=== PATIENT | female | born 1965 | race Caucasian/White ===

== ENCOUNTER → 2016-11-28 | Outpatient (CLI) | payer MEDICAID | LOC: FIMAGING 13:25 | PROVIDERS: ATTEND Internal Medicine | DX: J40 Bronchitis, not specified as acute or chronic (principal); F90.0 Attention-deficit hyperactivity disorder, predominantly inattentive type; M10.9 Gout, unspecified; E66.9 Obesity, unspecified; Z85.3 Personal history of malignant neoplasm of breast ==

== ENCOUNTER → 2017-01-16 | Outpatient (CLI) | payer MEDICAID | LOC: FIMAGING 10:07 | PROVIDERS: ATTEND Internal Medicine | DX: M25.551 Pain in right hip (principal); M25.552 Pain in left hip; M54.9 Dorsalgia, unspecified ==

== ENCOUNTER → 2017-05-17 | Outpatient (CLI) | payer MEDICAID | LOC: FIMAGING 14:06 | PROVIDERS: ATTEND Internal Medicine | DX: R05 Cough (principal); R91.8 Other nonspecific abnormal finding of lung field; Z85.3 Personal history of malignant neoplasm of breast ==

== ENCOUNTER → 2017-05-21 | Outpatient (CLI) | payer MEDICAID | LOC: BMCIMAGING 07:19 | PROVIDERS: ATTEND Internal Medicine | DX: R16.2 Hepatomegaly with splenomegaly, not elsewhere classified (principal); K82.4 Cholesterolosis of gallbladder; K76.0 Fatty (change of) liver, not elsewhere classified ==

== ENCOUNTER → 2017-06-07 | Outpatient (CLI) | payer MEDICAID ==
[~2017-06-07] MED LIST: IOPAMIDOL (ISOVUE-300) 100 ML BTL ONE
== END ==
LOC: FIMAGING 09:09
PROVIDERS: ATTEND Internal Medicine
DX: R16.1 Splenomegaly, not elsewhere classified (principal); R91.8 Other nonspecific abnormal finding of lung field; M51.36 Other intervertebral disc degeneration, lumbar region; M43.16 Spondylolisthesis, lumbar region
CPT/HCPCS: Q9967

== ENCOUNTER → 2018-05-19 | Outpatient (CLI) | payer MEDICAID | LOC: FIMAGING 06:32 | PROVIDERS: ATTEND Internal Medicine Hematology & Oncology | DX: R16.1 Splenomegaly, not elsewhere classified (principal); Z85.3 Personal history of malignant neoplasm of breast ==

== ENCOUNTER → 2018-12-10 | Outpatient (CLI) | payer OTHER, MEDICAID | LOC: FIMAGING 09:48 | PROVIDERS: ATTEND Internal Medicine Hematology & Oncology | DX: R10.2 Pelvic and perineal pain (principal); D73.89 Other diseases of spleen ==